=== PATIENT | male | born 1975 | race African-American/Black ===

== ENCOUNTER 2017-12-13 08:33 | Inpatient (IN) | payer OTHER ==
[2017-12-13 10:00] VITALS: BMI 30.2
--- NOTE | 2017-12-13 10:51 | HP ---
COWS - Scale Resting Pulse: 0= [place] 80 or Below Sweatin=Flushed/Facial Moisture Restless Observation: 3= Extraneous Movement Pupil Size: 2= Moderately Dilated Bone or Joint Aches: 2= Severe Diffuse Aches Runny Nose/ Eye Tearin= Runny Nose/Eyes GI Upset > 30mins: 3= Vomiting/Diarrhea Tremor Observation: 2= Slight Tremor Visible Yawning Observation: 2= >3x During Session Anxiety or Irritability: 2=Irritable/Anxious Goose Flesh Skin: 0=Smooth Skin COWS Score: 20 Admission ROS S - HPI Chief Complaint: I NEED HELP TO STOP USING HEROIN AND COCAINE Allergies/Adverse Reactions: Allergies Allergy/AdvReac Type Severity Reaction Status Date / Time No Known Allergies Allergy Verified 12/13/17 10:46 History of Present Illness: THIS 42 YEARS OLD MALE WITH HEROIN AND COCAINE DEPENDENCE,WITHDRAWAL SYMPTOM, SEEKING DETOX,LAST TREATMENT [facility] 11/15 HISTORY OF HYPERTENSION ON MED DRINK ALCOHOL TWICE A WEEK LONGEST PERIOD OF SOBRIETY 2 YEARS Exam Limitations: No Limitations - Ebola screening Have you traveled outside of the country in the last 21 days: No Have you had contact with anyone from an Ebola affected area: No Have you been sick,other than usual withdrawal symptoms: No - Review of Systems Constitutional: Chills, Loss of Appetite, Malaise, Night Sweats, Changes in sleep, Weakness, Unintentional Wgt. Loss EENT: reports: Nose Congestion Respiratory: reports: No Symptoms reported Cardiac: reports: No Symptoms Reported GI: reports: Diarrhea, Nausea, Vomiting, Abdominal cramping : reports: No Symptoms Reported Musculoskeletal: reports: Back Pain, Joint Pain, Muscle Pain, Joint Stiffness Integumentary: reports: Dryness Neuro: reports: Headache, Tremors Endocrine: reports: No Symptoms Reported Hematology: reports: No Symptoms Reported Psychiatric: reports: No Sypmtoms Reported Other Systems: Reviewed and Negative Patient History - Patient Medical History Hx Anemia: No Hx Asthma: No Hx Chronic Obstructive Pulmonary Disease (COPD): No Hx Cancer: No Hx Cardiac Disorders: No Hx Congestive Heart Failure: No Hx Hypertension: Yes (ON LISINOPRIL) Hx Hypercholesterolemia: No Hx Pacemaker: No HX Cerebrovascular Accident: No Hx Seizures: No Hx Dementia: No Hx Diabetes: No Hx Gastrointestinal Disorders: No Hx Liver Disease: No Hx Genitourinary Disorders: No Hx Sexually Transmitted Disorders: No Hx Renal Disease (ESRD): No Hx Thyroid Disease: No Hx Human Immunodeficiency Virus (HIV): No (IN 2017) Hx Hepatitis C: No Hx Depression: No Hx Suicide Attempt: No Hx Bipolar Disorder: No Hx Schizophrenia: No Other Medical History: NO SUICIDAL,NO HOMICIDAL - Patient Surgical History Past Surgical History: Yes Other Surgical History: ORAL SURGERY FOR DENATAL ABSCESS IN 2013 - PPD History Previous Implant?: No Documented Results: Negative w/o proof Implanted On Prior [facility] Admission?: No PPD to be Administered?: Yes - Smoking Cessation Smoking history: Current some day smoker Have you smoked in the past 12 months: Yes Aproximately how many cigarettes per day: 10 Cigars Per Day: 0 Hx Chewing Tobacco Use: No Initiated information on smoking cessation: Yes 'Breaking Loose' booklet given: 12/13/17 - Substance & Tx. History Hx Alcohol Use: No Hx Substance Use: Yes Substance Use Type: Cocaine, Heroin Hx Substance Use Treatment: Yes ([facility] 2007) - Substances Abused Heroin Route: Inhalation Frequency: Daily Amount used: 1 AND 1/2 GRAM Age of first use: 24 Date of Last Use: 12/12/17 Cocaine Route: Smoking Frequency: Daily Amount used: $10 Age of first use: 25 Date of Last Use: 12/11/17 Alcohol Route: Oral Frequency: 3-6 times per week Amount used: 3 BEERS Age of first use: 14 Date of Last Use: 12/12/17 Family Disease History - Family Disease History Family History: Denies Admission Physical Exam S - Vital Signs Vital Signs: Vital Signs - 24 hr 12/13/17 09:58 Temperature 98.5 F Pulse Rate 80 Respiratory 20 Rate Blood Pressure 157/115 - Physical General Appearance: Yes: Moderate Distress, Tremorous, Irritable, Sweating, Anxious HEENTM: Yes: Normal ENT Inspection, CLAUDIA, Pharynx Normal Respiratory: Yes: Lungs Clear, Normal Breath Sounds, No Respiratory Distress Neck: Yes: Within Normal Limits Breast: Yes: Within Normal Limits Cardiology: Yes: Within Normal Limits, Regular Rhythm, Regular Rate, S1, S2 Abdominal: Yes: Within Normal Limits, Normal Bowel Sounds, Non Tender, Soft Genitourinary: Yes: Within Normal Limits Back: Yes: Within Normal Limits, Normal Inspection, CVA Tenderness, CVA Tenderness (R) Musculoskeletal: Yes: Within Normal Limits, Back pain, Joint Stiffness, Muscle Pain Extremities: Yes: Tremors Neurological: Yes: ground hand II-XII NML intact, Fully Oriented, Alert, Motor Strength 5/5 Integumentary: Yes: Dry Lymphatic: Yes: Within Normal Limits - Diagnostic (1) Opioid dependence with withdrawal Current Visit: Yes Status: Acute (2) Cocaine dependence Current Visit: Yes Status: Acute (3) Essential hypertension Current Visit: Yes Status: Acute (4) Nicotine dependence Current Visit: Yes Status: Acute Cleared for Admission [facility] - Detox or Rehab [facility] Level of Care: Medically Managed Detox Regimen/Protocol: Methadone [facility] Breath Alcohol Content Breath Alcohol Content: 0 Urine Drug Screen - Results Drug Screen Negative: No Urine Drug Screen Results: HARDEEP-Cocaine, OPI-Opiates
[2017-12-13] MEDS ORDERED: ACETAMINOPHEN 325 MG TABLET (FP) PO PRN (11:04)
[2017-12-13] MEDS ORDERED: P-EPHED 60MG/TRIPROLIDI 2.5MG TABLET PO PRN (11:04)
[2017-12-13] MEDS ORDERED: LOPERAMIDE HCL 2 MG CAPSULE PO PRN (11:04)
[2017-12-13] MEDS ORDERED: NICOTINE POLACRILEX 2 MG GUM BUC PRN (11:04)
[2017-12-13] MEDS ORDERED: MAG HYDROX/AL HYDROX/SIMETH 30 ML UNIT-DOSE CUP PO PRN (11:04)
[2017-12-13] MEDS ORDERED: IBUPROFEN 400 MG TABLET (FP) PO PRN (11:04)
[2017-12-13] MEDS ORDERED: guaiFENesin/D-METHORPHAN HB 10 ML UNIT-DOSE CUPS PO PRN (11:04)
[2017-12-13] MEDS ORDERED: hydrOXYzine PAMOATE 25 MG CAPSULE (FP) PO PRN (11:04)
[2017-12-13] MEDS ORDERED: MAGNESIUM CITRATE 300 ML BOTTLE PO PRN (11:04)
[2017-12-13] MEDS ORDERED: MENTHOL/PHENOL 1 EACH UD MM PRN (11:04)
[2017-12-13] MEDS ORDERED: MAGNESIUM HYDROX 2400MG/30ML ORAL SUSPENSION 30 ML CUP PO PRN (11:04)
[2017-12-13] MEDS ORDERED: cloNIDine HCL 0.1 MG TABLET PO ONE (11:10)
[2017-12-13] MEDS ORDERED: METHADONE HCL 10 MG TABLET (FOR DETOX USE ONLY) PO ONE ×2 (11:15→23:00)
[2017-12-13] MEDS: diazePAM 5 MG TABLET PO PRN ×2 (12:07→22:20)
[2017-12-13] MEDS: LISINOPRIL 10 MG TABLET (FP) PO SCH (12:09)
[2017-12-13 14:36] LABS: URINE APPEARANCE CLEAR; URINE BILIRUBIN NEGATIVE (NEGATIVE); URINE BLOOD NEGATIVE (NEGATIVE); URINE COLOR LTYELLOW; URINE GLUCOSE (UA) NEGATIVE (NEGATIVE); URINE KETONE NEGATIVE (NEGATIVE); URINE LEUK ESTERASE NEGATIVE (NEGATIVE); URINE NITRITE NEGATIVE (NEGATIVE); URINE PROTEIN NEGATIVE (NEGATIVE); URINE UROBILINOGEN NEGATIVE mg/dL (0.2-1.0)
--- NOTE | 2017-12-13 17:42 | EKG ---
Test Reason : Blood Pressure : / mmHG Vent. Rate : 070 BPM Atrial Rate : 070 BPM P-R Int : 214 ms QRS Dur : 094 ms QT Int : 366 ms P-R-T Axes : 037 056 044 degrees QTc Int : 395 ms SINUS RHYTHM WITH 1ST DEGREE A-V BLOCK NONSPECIFIC T WAVE ABNORMALITY ABNORMAL ECG NO PREVIOUS ECGS AVAILABLE Confirmed by CINDY SUERO MD ([id number]) on 12/13/2017 5:41:57 PM Referred By: Confirmed By:CINDY SUERO MD
[2017-12-13] MEDS: CYCLOBENZAPRINE HCL 10 MG TABLET (FP) PO PRN (22:20)
[2017-12-13] MEDS: THIAMINE HCL 100 MG TABLET (FP) PO SCH (22:20)
[2017-12-13] MEDS: cloNIDine HCL 0.1 MG TABLET PO SCH (22:20)
--- NOTE | 2017-12-14 09:00 | PN ---
[facility] COWS - Scale Resting Pulse: 0= [place] 80 or Below Sweatin= Chills/Flushing Restless Observation: 3= Extraneous Movement Pupil Size: 0= Normal to Room Light Bone or Joint Aches: 2= Severe Diffuse Aches Runny Nose/ Eye Tearin= Runny Nose/Eyes GI Upset > 30mins: 2= Nausea/Diarrhea Tremor Observation of Outstretched Hands: 2= Slight Tremor Visible Yawning Observation: 0= None Anxiety or Irritability: 2=Irritable/Anxious Goose Flesh Skin: 3=Piloerection COWS Score: 17 BHS Progress Note (SOAP) Subjective: sweat anxiety irritable agitation joint aches GI upset Objective: 12/14/17 08:59 Vital Signs Temperature 98.2 F 12/14/17 06:00 Pulse Rate 65 12/14/17 06:00 Respiratory Rate 18 12/14/17 06:00 Blood Pressure 121/79 12/14/17 06:00 O2 Sat by Pulse Oximetry (%) Laboratory Last Values Urine Color Ltyellow 12/13/17 12:00 Urine Appearance Clear 12/13/17 12:00 Urine pH 6.0 (5.0-8.0) 12/13/17 12:00 Ur Specific [place] 1.023 (1.001-1.035) 12/13/17 12:00 Urine Protein Negative (NEGATIVE) 12/13/17 12:00 Urine Glucose (UA) Negative (NEGATIVE) 12/13/17 12:00 Urine Ketones Negative (NEGATIVE) 12/13/17 12:00 Urine Blood Negative (NEGATIVE) 12/13/17 12:00 Urine Nitrite Negative (NEGATIVE) 12/13/17 12:00 Urine Bilirubin Negative (NEGATIVE) 12/13/17 12:00 Urine Urobilinogen Negative mg/dL (0.2-1.0) 12/13/17 12:00 Ur Leukocyte Esterase Negative (NEGATIVE) 12/13/17 12:00 HIV 1&2 Antibody Screen Negative 12/13/17 12:00 HIV P24 Antigen Negative 12/13/17 12:00 lab noted Assessment: 12/14/17 08:59 withdrawal sx Plan: continue detox
[2017-12-14] MEDS ORDERED: METHADONE HCL 10 MG TABLET (FOR DETOX USE ONLY) PO ONE (10:00)
[2017-12-14] MEDS: cloNIDine HCL 0.1 MG TABLET PO SCH ×2 (10:21→22:26)
[2017-12-14] MEDS: CYCLOBENZAPRINE HCL 10 MG TABLET (FP) PO PRN (10:21)
[2017-12-14] MEDS: PRENATAL VITAMINS W/ FOLIC ACID TABLET (FP) PO SCH (10:21)
[2017-12-14] MEDS: LISINOPRIL 10 MG TABLET (FP) PO SCH (10:22)
[2017-12-14] MEDS: diazePAM 5 MG TABLET PO PRN ×2 (10:22→22:26)
[2017-12-14 10:29] LABS: HEMATOCRIT 43.4 % (35.4-49); HEMOGLOBIN 13.8 GM/dL (11.7-16.9); MCH 27.5 pg (25.7-33.7); MCHC 31.7 g/dl (32.0-35.9); MEAN CELL VOLUME 86.7 fl (80-96); MEAN PLT VOLUME 9.5 fl (7.5-11.1); PLATELET COUNT 194 K/MM3 (134-434); RBC 5.01 M/mm3 (4.00-5.60); RDW 13.5 % (11.9-15.9); WHITE BLOOD COUNT 5.3 K/mm3 (4.0-10.0)
[2017-12-14 10:36] LABS: CHLORIDE 102 mmol/L (98-107); POTASSIUM 4.3 mmol/L (3.5-5.1); SODIUM 141 mmol/L (136-145)
[2017-12-14 11:02] LABS: ALBUMIN 4.2 g/dl (3.4-5.0); ALK PHOS 71 U/L (45-117); ANION GAP 9 (8-16); BLOOD UREA NITROGEN 17 mg/dL (7-18); CALCIUM 9.4 mg/dL (8.5-10.1); CO2 30 mmol/L (21-32); CREATININE 1.5 mg/dL (0.7-1.3); GLUCOSE,RANDOM 117 mg/dL (74-106); SGOT/AST 19 U/L (15-37); SGPT/ALT 32 U/L (12-78); TOT PROT 7.3 g/dl (6.4-8.2)
[2017-12-14] MEDS: THIAMINE HCL 100 MG TABLET (FP) PO SCH (22:26)
[2017-12-15] MEDS ORDERED: METHADONE HCL 5 MG TABLET (FOR DETOX USE ONLY) PO ONE (10:00)
[2017-12-15] MEDS: PRENATAL VITAMINS W/ FOLIC ACID TABLET (FP) PO SCH (10:15)
[2017-12-15] MEDS: cloNIDine HCL 0.1 MG TABLET PO SCH ×2 (10:15→22:20)
[2017-12-15] MEDS: LISINOPRIL 10 MG TABLET (FP) PO SCH (10:15)
[2017-12-15] MEDS: diazePAM 5 MG TABLET PO PRN ×2 (10:16→22:20)
--- NOTE | 2017-12-15 10:19 | PN ---
[facility] COWS - Scale Resting Pulse: 1= [place] 81-100 Sweatin= Chills/Flushing Restless Observation: 3= Extraneous Movement Pupil Size: 0= Normal to Room Light Bone or Joint Aches: 2= Severe Diffuse Aches Runny Nose/ Eye Tearin= Runny Nose/Eyes GI Upset > 30mins: 1= Stomach Cramp Tremor Observation of Outstretched Hands: 2= Slight Tremor Visible Yawning Observation: 0= None Anxiety or Irritability: 2=Irritable/Anxious Goose Flesh Skin: 0=Smooth Skin COWS Score: 14 BHS Progress Note (SOAP) Subjective: anxiety joint ache irritable agitation sweat tremor Objective: 12/15/17 10:24 Vital Signs Temperature 96.3 F L 12/15/17 10:03 Pulse Rate 85 12/15/17 10:03 Respiratory Rate 20 12/15/17 10:03 Blood Pressure 128/95 12/15/17 10:03 O2 Sat by Pulse Oximetry (%) Laboratory Last Values WBC 5.3 K/mm3 (4.0-10.0) D 12/14/17 05:50 RBC 5.01 M/mm3 (4.00-5.60) 12/14/17 05:50 Hgb 13.8 GM/dL (11.7-16.9) 12/14/17 05:50 Hct 43.4 % (35.4-49) 12/14/17 05:50 MCV 86.7 fl (80-96) 12/14/17 05:50 MCH 27.5 pg (25.7-33.7) 12/14/17 05:50 MCHC 31.7 g/dl (32.0-35.9) L 12/14/17 05:50 RDW 13.5 % (11.9-15.9) 12/14/17 05:50 Plt Count 194 K/MM3 (134-434) D 12/14/17 05:50 MPV 9.5 fl (7.5-11.1) 12/14/17 05:50 Sodium 141 mmol/L (136-145) 12/14/17 05:50 Potassium 4.3 mmol/L (3.5-5.1) 12/14/17 05:50 Chloride 102 mmol/L (98-107) 12/14/17 05:50 Carbon Dioxide 30 mmol/L (21-32) 12/14/17 05:50 Anion Gap 9 (8-16) 12/14/17 05:50 BUN 17 mg/dL (7-18) 12/14/17 05:50 Creatinine 1.5 mg/dL (0.7-1.3) H 12/14/17 05:50 Creat Clearance w eGFR 50.84 (>60) 12/14/17 05:50 Random Glucose 117 mg/dL (74-106) H 12/14/17 05:50 Calcium 9.4 mg/dL (8.5-10.1) 12/14/17 05:50 Total Bilirubin 1.0 mg/dL (0.2-1.0) D 12/14/17 05:50 AST 19 U/L (15-37) 12/14/17 05:50 ALT 32 U/L (12-78) 12/14/17 05:50 Alkaline Phosphatase 71 U/L (45-117) D 12/14/17 05:50 Total Protein 7.3 g/dl (6.4-8.2) 12/14/17 05:50 Albumin 4.2 g/dl (3.4-5.0) D 12/14/17 05:50 Urine Color Ltyellow 12/13/17 12:00 Urine Appearance Clear 12/13/17 12:00 Urine pH 6.0 (5.0-8.0) 12/13/17 12:00 Ur Specific [place] 1.023 (1.001-1.035) 12/13/17 12:00 Urine Protein Negative (NEGATIVE) 12/13/17 12:00 Urine Glucose (UA) Negative (NEGATIVE) 12/13/17 12:00 Urine Ketones Negative (NEGATIVE) 12/13/17 12:00 Urine Blood Negative (NEGATIVE) 12/13/17 12:00 Urine Nitrite Negative (NEGATIVE) 12/13/17 12:00 Urine Bilirubin Negative (NEGATIVE) 12/13/17 12:00 Urine Urobilinogen Negative mg/dL (0.2-1.0) 12/13/17 12:00 Ur Leukocyte Esterase Negative (NEGATIVE) 12/13/17 12:00 RPR Titer Nonreactive (NONREACTIVE) 12/14/17 05:50 HIV 1&2 Antibody Screen Negative 12/13/17 12:00 HIV P24 Antigen Negative 12/13/17 12:00 lab noted Assessment: 12/15/17 10:25 withdrawal sx Plan: continue detox
[2017-12-15] MEDS: THIAMINE HCL 100 MG TABLET (FP) PO SCH (22:20)
[2017-12-16 06:19] VITALS: TEMP 97.6
[2017-12-16 07:21] VITALS: BP 125/88; PULSE 90
[2017-12-16] MEDS ORDERED: METHADONE HCL 5 MG TABLET (FOR DETOX USE ONLY) PO ONE (10:00)
--- NOTE | 2017-12-16 10:22 | DS ---
[facility] Detox Discharge Summary Admission Date: 12/13/17 Discharge Date: 12/16/17 - History Present History: Opioid Dependence Pertinent Past History: patient insists to leave the detox health teaching on risks of substance misuse and the important of recovery maintenance report has hypertension medication at home - Physical Exam Results Vital Signs: Vital Signs Temperature 97.6 F 12/16/17 07:20 Pulse Rate 90 12/16/17 07:20 Respiratory Rate 20 12/16/17 07:20 Blood Pressure 125/88 12/16/17 07:20 O2 Sat by Pulse Oximetry (%) Pertinent Admission Physical Exam Findings: withdrawal sx Vital Signs Temperature 97.6 F 12/16/17 07:20 Pulse Rate 90 12/16/17 07:20 Respiratory Rate 20 12/16/17 07:20 Blood Pressure 125/88 12/16/17 07:20 O2 Sat by Pulse Oximetry (%) Laboratory Last Values WBC 5.3 K/mm3 (4.0-10.0) D 12/14/17 05:50 RBC 5.01 M/mm3 (4.00-5.60) 12/14/17 05:50 Hgb 13.8 GM/dL (11.7-16.9) 12/14/17 05:50 Hct 43.4 % (35.4-49) 12/14/17 05:50 MCV 86.7 fl (80-96) 12/14/17 05:50 MCH 27.5 pg (25.7-33.7) 12/14/17 05:50 MCHC 31.7 g/dl (32.0-35.9) L 12/14/17 05:50 RDW 13.5 % (11.9-15.9) 12/14/17 05:50 Plt Count 194 K/MM3 (134-434) D 12/14/17 05:50 MPV 9.5 fl (7.5-11.1) 12/14/17 05:50 Sodium 141 mmol/L (136-145) 12/14/17 05:50 Potassium 4.3 mmol/L (3.5-5.1) 12/14/17 05:50 Chloride 102 mmol/L (98-107) 12/14/17 05:50 Carbon Dioxide 30 mmol/L (21-32) 12/14/17 05:50 Anion Gap 9 (8-16) 12/14/17 05:50 BUN 17 mg/dL (7-18) 12/14/17 05:50 Creatinine 1.5 mg/dL (0.7-1.3) H 12/14/17 05:50 Creat Clearance w eGFR 50.84 (>60) 12/14/17 05:50 Random Glucose 117 mg/dL (74-106) H 12/14/17 05:50 Calcium 9.4 mg/dL (8.5-10.1) 12/14/17 05:50 Total Bilirubin 1.0 mg/dL (0.2-1.0) D 12/14/17 05:50 AST 19 U/L (15-37) 12/14/17 05:50 ALT 32 U/L (12-78) 12/14/17 05:50 Alkaline Phosphatase 71 U/L (45-117) D 12/14/17 05:50 Total Protein 7.3 g/dl (6.4-8.2) 12/14/17 05:50 Albumin 4.2 g/dl (3.4-5.0) D 12/14/17 05:50 Urine Color Ltyellow 12/13/17 12:00 Urine Appearance Clear 12/13/17 12:00 Urine pH 6.0 (5.0-8.0) 12/13/17 12:00 Ur Specific [place] 1.023 (1.001-1.035) 12/13/17 12:00 Urine Protein Negative (NEGATIVE) 12/13/17 12:00 Urine Glucose (UA) Negative (NEGATIVE) 12/13/17 12:00 Urine Ketones Negative (NEGATIVE) 12/13/17 12:00 Urine Blood Negative (NEGATIVE) 12/13/17 12:00 Urine Nitrite Negative (NEGATIVE) 12/13/17 12:00 Urine Bilirubin Negative (NEGATIVE) 12/13/17 12:00 Urine Urobilinogen Negative mg/dL (0.2-1.0) 12/13/17 12:00 Ur Leukocyte Esterase Negative (NEGATIVE) 12/13/17 12:00 RPR Titer Nonreactive (NONREACTIVE) 12/14/17 05:50 HIV 1&2 Antibody Screen Negative 12/13/17 12:00 HIV P24 Antigen Negative 12/13/17 12:00 lab noted - Treatment Hospital Course: Detox Protocol Followed, Responded well - Medication Discharge Medications: Ambulatory Orders Lisinopril [Prinivil] 0 mg PO DAILY 12/13/17 - Diagnosis (1) Essential hypertension Status: Chronic (2) Opioid dependence with withdrawal Status: Acute - AMA Did Patient Leave Against Medical Advice: Yes
[2017-12-17] MEDS ORDERED: METHADONE HCL 10 MG TABLET (FOR DETOX USE ONLY) PO ONE (10:00)
[2017-12-18] MEDS ORDERED: METHADONE HCL 5 MG TABLET (FOR DETOX USE ONLY) PO ONE (06:00)
== END 2017-12-16 09:30 | disposition left against medical advice (07) | DRG 770 ==
LOC: YASAS 08:33 → Y6N 10:57
PROVIDERS: ADMIT Internal Medicine; ATTEND Internal Medicine
PROC: HZ2ZZZZ Detoxification Services for Substance Abuse Treatment (ICD-10-PCS; principal; 2017-12-13)
DX: F11.23 Opioid dependence with withdrawal (principal); F14.20 Cocaine dependence, uncomplicated; F17.210 Nicotine dependence, cigarettes, uncomplicated; I10 Essential (primary) hypertension
CPT/HCPCS: 36415; 80053; 81003; 85027; 86593; 87389; 93005; 93010; J0735